=== PATIENT | female | born 1955 | race African-American/Black ===

== ENCOUNTER 2019-10-10 02:29 | Inpatient (IN) | payer MEDICAID ==
[2019-10-10] VITALS (7 sets, daily range): BP systolic 107–130; BP diastolic 60–70
[~2019-10-10] VITALS: Ht 157.5 cm; Wt 73.5 kg
--- NOTE | 2019-10-10 02:53 | Emergency Room Report ---
History of Present Illness General Chief Complaint: Chest Pain Source: Patient Present Illness HPI This is a 64-year-old female with no past medical history. She presents with chief plaint of chest pain. Pain been on and off for the last week. Worse with exertion. No fever chills. Pain is localized to the left chest. Pain is achy and sharp in nature. 8 out of 10. Radiate to her back and neck. She states she did feel short of breath and sweaty. No fever or chills. No nausea or vomiting. Worse with exertion. No relief with ibuprofen. She said this always persistent pain that is mild but occasionally it gets sharp and stabbing. Allergies: Coded Allergies: No Known Allergies (Unverified , 10/10/19) COVID-19 Screening Contact w/high risk pt: No Experienced COVID-19 symptoms?: Yes COVID-19 Testing performed GAS ADJUSTER: No Patient History Past Medical History: none, see triage record, old chart reviewed Past Surgical History: none Pertinent Family History: none Social History: Denies: smoking Now: No Immunizations: other Reviewed Nursing Documentation: PMH: Agreed; PSxH: Agreed Nursing Documentation-PMH Past Medical History: No Stated History Review of Systems Eye: Denies: eye pain, blurred vision ENT: Denies: ear pain, nose congestion, throat swelling Respiratory: Denies: cough, shortness of breath Cardiovascular: Reports: chest pain; Denies: palpitations Gastrointestinal: Denies: abdominal pain, diarrhea, nausea, vomiting Musculoskeletal: Denies: back pain, joint pain Skin: Denies: rash Neurological: Denies: headache, numbness Endocrine: Denies: increased thirst, increased urine Hematologic/Lymphatic: Denies: easy bruising All Other Systems: negative except mentioned in HPI Physical Exam Vital Signs Date Time Temp Pulse Resp B/P (MAP) Pulse Ox O2 Delivery O2 Flow Rate FiO2 10/10/19 02:32 77 14 133/60 (84) 100 Room Air Vitals normal Sp02 EP Interpretation: reviewed, normal General Appearance: well appearing, no apparent distress, alert Head: normocephalic, atraumatic Eyes: bilateral eye PERRL, bilateral eye EOMI ENT: hearing grossly normal, normal pharynx Neck: full range of motion, supple, no meningismus Respiratory: chest non-tender, lungs clear, normal breath sounds Cardiovascular #1: regular rate, rhythm, no murmur Gastrointestinal: normal bowel sounds, non tender, no mass, no organomegaly, no bruit, non-distended Musculoskeletal: back normal, normal range of motion, gait/station normal Psychiatric: mood/affect normal Medical Decision Making Diagnostic Impression: Primary Impression: Chest pain Qualified Codes: R07.9 - Chest pain, unspecified Additional Impressions: ACS (acute coronary syndrome) Goiter ER Course Patient with chest pain. No evidence of STEMI. Aspirin given here. Pain resolved. No evidence of pneumonia, PE, dissection to my view. Because of her episodic pain going on for a week, will admit for further work-up. I discussed the case with Dr. Parrish for admission. EKG Diagnostic Results Rate: normal Rhythm: NSR ST Segments: no acute changes ASA given to the pt in ED: Yes Rhythm Strip Diag. Results EP Interpretation: yes Rate: 70 Rhythm: NSR, no PVC's, no ectopy Chest X-Ray Diagnostic Results Chest X-Ray Diagnostic Results : Chest X-Ray Ordered: Yes # of Views/Limited/Complete: 1 View Indication: Chest Pain EP Interpretation: Yes Interpretation: no consolidation, no effusion, no pneumothorax, no acute cardiopulmonary disease Impression: No acute disease Electronically Signed by: Frankie Springer MD CT/MRI/US Diagnostic Results CT/MRI/US Diagnostic Results : Imaging Test Ordered: CT chest Impression Read by radiologist. Markedly enlarged and nodular left thyroid gland consistent with goiter. No PE. Last Vital Signs Date Time Temp Pulse Resp B/P (MAP) Pulse Ox O2 Delivery O2 Flow Rate FiO2 10/10/19 02:32 77 14 133/60 (84) 100 Room Air Status: improved Disposition: ADMITTED INPATIENT Condition: Serious Scripts No Active Prescriptions or Reported Meds Frankie Springer MD Oct 10, 2019 02:53
[2019-10-10] MEDS ORDERED: Morphine Sulfate 4mg/ml Inj (IV USE ONLY) IVP ONE (03:00)
[2019-10-10] MEDS ORDERED: Nitroglycerin Subl 0.4mg tab SL PRN (03:00)
[2019-10-10] MEDS ORDERED: Aspirin Baby 81mg ORAL ONE (03:00)
[2019-10-10 03:49] LABS: BASOPHILS % (AUTO) 1.1 % (0.0-2.0); EOSINOPHILS % (AUTO) 0.4 % (0.0-3.0); HEMOGLOBIN 14.5 G/DL (12.0-16.0); LYMPHOCYTES % (AUTO) 24.2 % (20.0-45.0); MEAN CORPUSCULAR VOLUME 86 FL (80-99); MONOCYTES % (AUTO) 4.7 % (1.0-10.0); NEUTROPHILS % (AUTO) 69.6 % (45.0-75.0); PLATELET COUNT 226 K/UL (150-450); RED BLOOD COUNT 5.22 M/UL (4.20-5.40); RED CELL DISTRIBUTION WIDTH 14.1 % (11.6-14.8)
[2019-10-10 04:08] LABS: ANION GAP 11 mmol/L (5-15); BLOOD UREA NITROGEN 8 mg/dL (7-18); CALCIUM 10.4 MG/DL (8.5-10.1); CARBON DIOXIDE 25 MMOL/L (21-32); CHLORIDE 101 MMOL/L (98-107); POTASSIUM 3.6 MMOL/L (3.5-5.1); SODIUM 137 MMOL/L (136-145)
[2019-10-10] MEDS ORDERED: Omnipaque 350 100ml vial INJ PRN (04:15)
[2019-10-10 04:18] LABS: ALANINE AMINOTRANSFERASE 18 U/L (12-78); ALBUMIN 4.2 G/DL (3.4-5.0); ALKALINE PHOSPHATASE 40 U/L (46-116); ASPARTATE AMINO TRANSFERASE 17 U/L (15-37)
--- NOTE | 2019-10-10 05:29 | Diagnostic Imaging Report ---
EXAM: CT Angiography Chest With Intravenous Contrast CLINICAL HISTORY: SOB TECHNIQUE: Axial computed tomographic angiography images of the chest with intravenous contrast. CTDI is 41.8 mGy and DLP is 149.1 mGy-cm. One or more of the following dose reduction techniques were used: automated exposure control, adjustment of the mA and/or kV according to patient size, use of iterative reconstruction technique. MIP reconstructed images were created and reviewed. COMPARISON: No relevant prior studies available. FINDINGS: LUNGS: There is no focal infiltrate. There is no pleural effusion or pneumothorax. The tracheobronchial tree is patent. HEART: Within normal limits. VASCULATURE: No acute pulmonary embolism. THYROID: Markedly enlarged and nodular left thyroid gland consistent with multinodular goiter. Consider nuclear medicine correlation if clinically indicated. MEDIASTINUM + LYMPHADENOPATHY: There are no pathologically enlarged mediastinal, hilar, or axillary lymph nodes. SUPERIOR ABDOMEN: The included portions of the superior abdomen are within normal limits. MUSCULOSKELETAL: Within normal limits. IMPRESSION: No acute pulmonary embolism. Markedly enlarged and nodular left thyroid gland consistent with multinodular goiter. Consider nuclear medicine correlation if clinically indicated.
[2019-10-10] MEDS ORDERED: Morphine Sulfate 2mg/ml Inj(IV/IM USE ONLY) IVP PRN (07:45)
--- NOTE | 2019-10-10 08:14 | History and Physical Report ---
DATE OF ADMISSION: 10/10/2019 CHIEF COMPLAINT: Chest pain. HISTORY OF PRESENT ILLNESS: The patient is a pleasant 64-year-old female. She has no past medical history presented with complaints of one week of almost nonstop left-sided chest pain. The pain is actually located just below the left breast and radiates to the back and the shoulder and neck, it is worse with movement. She has no fevers, chills, or cough. She denies any exertional chest pain. On evaluation in the emergency room, the patient required morphine for pain control. Her troponin was negative. EKG was normal. CT angio of the chest showed no evidence of PE. In light of the patient's persistent chest pain, she is now admitted for further evaluation and care. PAST MEDICAL HISTORY: None. PAST SURGICAL HISTORY: Includes . CURRENT MEDICATIONS: None. FAMILY HISTORY: Significant for grandmother with heart disease at older age. SOCIAL HISTORY: Negative for tobacco or drugs. The patient drinks socially. REVIEW OF SYSTEMS: Negative except for chest pain. PHYSICAL EXAMINATION: VITAL SIGNS: Temperature 98 degrees, pulse 94, respirations 16, blood pressure 124/66. GENERAL: The patient is well developed, no apparent distress. HEART: Regular rate and rhythm. LUNGS: Clear. ABDOMEN: Soft, nontender, and nondistended. EXTREMITIES: Without clubbing, cyanosis, or edema. LABORATORY DATA: White count 7, hemoglobin 14, platelets of 226. Sodium 137. Troponin was negative. Potassium 3.6. D-dimer was 0.71. EKG showed normal sinus rhythm. ASSESSMENT: This is a 64-year-old female with no significant past medical history who presents with complaints of chest pain that sounds musculoskeletal. PLAN: We will check an echo. Repeat troponin later today. Check thyroid function test. Cardiology consultation. Pain medications as needed. Ganesh Parrish M.D. DR: Paco JOB#: [id number] CC:
[2019-10-10] MEDS: Pantoprazole Inj IVP SCH (09:08)
[2019-10-10] MEDS ORDERED: HYDROcodone/Acetamin 5/325 tab ORAL PRN (13:45)
[2019-10-10] MEDS: Morphine Sulfate 2mg/ml Inj(IV/IM USE ONLY) IVP PRN (21:18)
[2019-10-11] VITALS: BP 109/72
[2019-10-11 04:00] VITALS: BP 120/65
[2019-10-11] MEDS: Morphine Sulfate 2mg/ml Inj(IV/IM USE ONLY) IVP PRN (06:33)
[2019-10-11 08:00] VITALS: BP 144/72
[2019-10-11] MEDS: Pantoprazole Inj IVP SCH (08:59)
[2019-10-11] MEDS ORDERED: Aspirin EC 81mg tab ORAL SCH (09:00)
--- NOTE | 2019-10-11 11:32 | Diagnostic Imaging Report ---
EXAM: XR Chest, 1 View CLINICAL HISTORY: Chest pain TECHNIQUE: Frontal view of the chest. COMPARISON: CT of the chest obtained the same date. FINDINGS: Lungs: Unremarkable. The lungs appear clear. No focal consolidation. Pleural space: Unremarkable. The costophrenic angles are sharp. No visible pneumothorax. Heart: Unremarkable. No cardiomegaly. Mediastinum: Mild rightward tracheal deviation with prominence of the neck soft tissues. Bones/joints: Unremarkable. Tubes, lines and devices: Telemetry leads overlie the thorax. IMPRESSION: 1. Mild rightward tracheal deviation with prominence of the neck soft tissues. This correlates with findings on the CT chest of the same date which demonstrated an enlarged thyroid gland with a left thyroid lobe nodule/mass. 2. No evidence of acute cardiopulmonary disease.
[2019-10-11] MEDS ORDERED: SIMETHICON40 MG/0.2 PO (11:59)
[2019-10-11] MEDS ORDERED: PROTONIX20 MG ORAL (11:59)
[2019-10-11 12:00] VITALS: BP 100/61
[2019-10-11] MEDS ORDERED: Simethicone 80mg tab ORAL PRN (12:00)
--- NOTE | 2019-10-13 15:03 | Discharge Summary ---
Discharge Summary Discharge Summary _ DATE OF ADMISSION: 10/10/2019 DATE OF DISCHARGE: 10/11/2019 DISCHARGED BY: Dr. Parrish REASON FOR ADMISSION: 64 years old female with no past medical history , presented with chief complaint of chest pain. Chest pain reported as being present on and off for the last week . Pain was localized to the left chest, achy and sharp , 8 out of 10. She felt short of breath and sweaty. No fever or chills. No nausea or vomiting. Upon evaluation vital sings and laboratory work-up wer stable. Troponin negative . EKG reveals sinus rhythm no acute ischemic changes. TSH 1.975. Chest x-ray demonstrated rightward tracheal deviation with prominence of the neck soft tissue , correlated with the findings on the CT chest ) see below), no evidence of acute cardiopulmonary disease. CTA of the chest treated no acute pulmonary embolism. Markedly enlarged and nodular left thyroid gland consistent with multinodular goiter. In emergency department patient medicated for pain, received aspirin and nitroglycerin, and admitted for further management. HOSPITAL COURSE: Patient admitted to telemetry floor. Serial troponin were negative. EKG revealed no acute ischemic changes. Patient was ruled out for acute myocardial infarction. Echocardiogram demonstrated preserved ejection fraction no evidence of wall motion abnormality. Patient has no risk factor for cardiac disease. Chest pain was likely musculoskeletal given clinical presentation. Pain management was addressed as needed. Patient started on PPI and simethicone. Pain resolved. Prescription for Protonix and simethicone provided. TSH within normal limits. Patient was recommended to follow-up nuclear medicine test, which can be done as outpatient. Due to rapid and unexpected improvement in patient condition, patient was discharged in 1 day. FINAL DIAGNOSES: Chest pain likely musculoskeletal Multinodular goiter DISCHARGE MEDICATIONS: See Medication Reconciliation list. DISCHARGE INSTRUCTIONS: Patient was discharged home. Per the primary care provider in 1 week. I have been assigned to dictate discharge summary for this account. I was not involved in the patient's management. Rosa Elena Chacon NP Oct 13, 2019 15:03
== END 2019-10-11 14:10 | disposition home or self-care (01) | DRG 203 ==
LOC: EMR 02:52 → 2E 03:24 → EDBEDREQ 05:33
DX: R07.89 Other chest pain (principal); E04.2 Nontoxic multinodular goiter
CPT/HCPCS: 36415; 71045; 71275; 80053; 84443; 84484; 85025; 85379; 93005; 93306; 96374; 96375; 99285; J2405; U0002